=== PATIENT | male | born 1995 | race African-American/Black ===

== ENCOUNTER 2019-12-15 22:46 | Observation (INO) ==
[2019-12-15] MEDS ORDERED: LACTATED RINGERS 500 ML IV STA (23:28)
[2019-12-15] MEDS ORDERED: DIPH/TET/ACEL PERT BOOSTER VACCINE 0.5 ML VIAL IM ONE (23:28)
[2019-12-15] MEDS ORDERED: ONDANSETRON 4 MG/2 ML VIAL IV STA (23:28)
[2019-12-15] MEDS ORDERED: HYDROmorphone 2 MG/1 ML VIAL IV STA (23:28)
[2019-12-15 23:47] LABS: Basophils % 0.3 % (0.0-0.8); Eosinophils % 0.3 % (0.00-10.9); Hematocrit 45.1 VOL% (42.0-52.0); Hemoglobin 15.1 GM/DL (14.0-18.0); Immature Granulocytes % 0.3 %; Immature Granulocytes Absolute 0.03 #; Lymphocytes # 1.5 10*3/uL (1.4-4.0); Lymphocytes % 15.7 % (21.2-54.2); Mean Corpuscular HGB Conc 33.5 GM/DL (32-36); Mean Corpuscular Volume 88.6 FL (87-102); Neutrophils % 76.4 % (38.7-73.9); Platelet Count 223 T/CUMM (130-400); Red Blood Count 5.09 MC/CUMM (3.8-5.5); Red Cell Distribution Width 12.5 % (9.3-17.3); White Blood Count 9.7 T/CUMM (4-12)
[2019-12-16 00:01] LABS: Alanine Aminotransferase 23 U/L (16-61); Albumin 3.9 G/DL (3.4-5.0); Alkaline Phosphatase 79 U/L (45-117); Amylase 67 U/L (25-115); Aspartate Amino Transferase 25 U/L (0-37); Blood Urea Nitrogen 9 MG/DL (7-18); Calcium 8.5 MG/DL (8.5-10.1); Estimated Glom Filtration Rate 89 ML/MIN; Glucose 103 MG/DL (74-106); Osmolality,Calculated 271.8 MOS/KG (273-304); Total Protein 7.4 G/DL (6.4-8.3)
[2019-12-16 01:09] LABS: Apearance,Urine CLEAR (Clear); Bilirubin,Urine Negative (Negative); Blood, Urine Negative (Negative); Glucose,Urine (UA) Negative (Negative); Ketones,Urine Negative (Negative); Nitrite,Urine Negative (Negative); Protein,Urine Negative; RBC,Urine 1 /HPF (0-4); Squamous Epithelial Cell,Urine Occasional /HPF (0-10); Urine Color Straw (Yellow); Urine Urobilinogen < 2.0 EU/DL (0.2-1.0); WBC,Urine 1 /HPF (0-6)
[2019-12-16 01:51] LABS: Barbiturates Screen,Urine Negative (Negative); Benzodiazepines Screen,Urine Negative (Negative); Cannabinoid Screen,Urine Negative (Negative); Opiate Screen,Urine Negative (Negative); Phencyclidine Screen,Urine Negative (Negative)
[2019-12-16] MEDS ORDERED: ACETAMINOPHEN 325 MG TABLET PO PRN (02:43)
[2019-12-16] MEDS ORDERED: HYDROmorphone 2 MG/1 ML VIAL IV PRN (02:43)
[2019-12-16] MEDS ORDERED: ONDANSETRON 4 MG/2 ML VIAL IV PRN (02:43)
[2019-12-16] MEDS: SODIUM CHLORIDE 0.9% 1,000 ML IV SCH ×2 (03:05→12:12)
[2019-12-16] MEDS ORDERED: ceFAZolin 1,000 MG in SYRINGE 1 EACH IV SCH (08:00)
[2019-12-16] MEDS ORDERED: PANTOPRAZOLE 40 MG TABLET PO SCH (09:00)
[2019-12-16 11:16] VITALS: BP 129/73
[2019-12-16] MEDS ORDERED: BACITRACIN OINT 0.9 GM PACK TOP SCH (13:00)
== END 2019-12-16 15:57 | disposition home or self-care (01) ==
LOC: EDUNIT# → EDBD → N.ED 22:46 → N.EDINP 22:46 → N.3E 12-16 02:43
PROVIDERS: ADMIT Surgery; ATTEND Surgery